=== PATIENT | male | born 1975 | race Hispanic/Latino ===

== ENCOUNTER 2021-11-07 19:09 | Emergency (ER) | payer BC, OTHER ==
[~2021-11-07] VITALS: Ht 170.2 cm; Wt 93.0 kg
== END 2021-11-07 23:55 | disposition home or self-care (01) ==
LOC: FSED 20:12
DX: S40.022A Contusion of left upper arm, initial encounter (principal); V43.52XA Car driver injured in collision with other type car in traffic accident, initial encounter; R07.89 Other chest pain
CPT/HCPCS: 71046; 99283

== ENCOUNTER → 2023-02-09 | Outpatient (CLI) | payer BC ==
[2023-02-07 08:28] LABS: BASOPHILS % 0.4 % (0.0-1.0); EOSINOPHILS # (AUTO) 0.1 (0.0-0.4); EOSINOPHILS % 0.6 % (0.0-6.0); HEMATOCRIT 42.2 % (38.2-49.6); HEMOGLOBIN 13.4 g/dL (14.0-18.0); LYMPHOCYTES # (AUTO) 3.5 (1.0-3.2); LYMPHOCYTES % 43.3 % (18.0-39.1); MEAN CORPUSCULAR HEMOGLOBIN 30.7 pg (28-32); MEAN CORPUSCULAR HGB CONC 31.8 g/dL (31-35); MEAN CORPUSCULAR VOLUME 96.8 fL (81-99); MONOCYTES # (AUTO) 0.6 (0.2-0.8); NEUTROPHILS # (AUTO) 3.9 (2.1-6.9); NEUTROPHILS % 48.1 % (38.7-80.0); PLATELET COUNT 237 x10e3/uL (140-360); RED BLOOD COUNT 4.36 x10e6/uL (4.3-5.7); RED CELL DISTRIBUTION WIDTH 12.6 % (11.7-14.4)
[2023-02-07 08:42] LABS: INR 0.91; PROTHROMBIN TIME 12.8 seconds (11.9-14.5)
[2023-02-07 08:52] LABS: ALBUMIN 3.8 g/dL (3.5-5.0); ALBUMIN/GLOBULIN RATIO 1.3 (0.8-2.0); CALCIUM 9.1 mg/dL (8.4-10.2); CHOL/HDL RATIO 5.7 (3.9-4.7); CREATININE, SERUM 1.24 mg/dL (0.72-1.25)
[~2023-02-09] VITALS: Ht 170.2 cm; Wt 98.9 kg
[~2023-02-09] MED LIST: AMIODARONE HCL200 MG PO; BENZOCAINE 20% SPR 60 ML CAN ONE; CYCLOBENZAPRINE10 MG PO; IBUPROFEN800 MG PO; METOPROLOL SUCC50 MG PO; PREDNISONE20 MG PO; SODIUM CHLORIDE 0.9% 1000ML 1,000 ML ONE
[2023-02-09 11:30] VITALS: BP 146/85; PULSE 74; RESP 16; TEMP 97.4; O2SAT 100
== END ==
LOC: CATH LAB 07:07 → LAB 07:07 → EDSTATUS 13:00
PROVIDERS: ATTEND Internal Medicine Cardiovascular Disease
DX: I48.91 Unspecified atrial fibrillation (principal); Z01.812 Encounter for preprocedural laboratory examination; Z53.8 Procedure and treatment not carried out for other reasons
CPT/HCPCS: 36415; 80053; 80061; 85025; 85610; J7030